=== PATIENT | male | born 1980 | race Caucasian/White ===

== ENCOUNTER 2018-05-05 20:28 | Emergency (ER) | payer OTHER ==
[~2018-05-05] VITALS: Ht 175.3 cm; Wt 74.8 kg
== END 2018-05-05 22:24 | disposition home or self-care (01) ==
LOC: ER 20:28
DX: S82.191A Other fracture of upper end of right tibia, initial encounter for closed fracture (principal); W22.8XXA Striking against or struck by other objects, initial encounter; Y93.89 Activity, other specified; Y92.89 Other specified places as the place of occurrence of the external cause; Y99.8 Other external cause status